=== PATIENT | female | born 1930 | race Caucasian/White ===

== ENCOUNTER 2018-03-14 16:51 | Inpatient (IN) | payer MEDICARE ==
[~2018-03-14] VITALS: Ht 167.6 cm; Wt 64.0 kg
--- NOTE | ~2018-03-14 | EKG ---
[place], [place] ELECTROCARDIOGRAM REPORT NAME: RENE JARA UNIT #: [id number] ROOM: 509 DOCTOR: GEGE DRAFT REPORT BIRTHDATE: [birth year] [facility] Test Date: 2018-03-14 Test Time: 18:38:41 Pat Name: RENE JARA Department: Room: 509 Gender: F Inspector Hairspring: Viji Gleason : 1930 Requested By: MARÍA KILPATRICK Order Number: [id number] Reading MD: Amado Newton MD Measurements Intervals [place] Rate: 112 P: 14 [place]: 157 QRS: -73 QRSD: 74 T: 44 QT: 336 QTc: 459 Interpretive Statements Sinus tachycardia Abnormal R-wave progression, early transition Artifact in lead(s) I,aVL,V1,V2,V3,V4,V5,V6 Marked baseline artifact makes interpretation difficult Electronically Signed On 03-14-2018 16:36:46 PST by Amado Newton MD CM:EKGRPT:ELECTROCARDIOGRAM REPORT [id number] MARÍA PENA DRAFT REPORT MARÍA KILPATRICK DO
[~2018-03-14 16:51] MED LIST: AMLODIPINE BESYL5 MG PO; ASPIR LOW81 MG PO; ATIVAN0.5 MG PO; ATIVAN1 MG PO; BACLOFEN5 MG PO; CELEXA20 MG PO; DEPAKOTE125 MG PO; DEPAKOTE250 MG PO; DULCOLAX10 M1 R; LASIX20 MG PO; MUSCLE RUB CREA35 GM T; NP THYROID 120120 MG PO; OMEPRAZOLE D/R20 MG PO; RIVASTIGMINE T1.5 M1 PO; Sinemet Cr 25-11 TAB PO; ULTRAM50 MG PO
[2018-03-14 16:56] VITALS: BP 105/54
[2018-03-14 17:16] LABS: BASO % 0.5 % (0.0-1.0); EOS % 0.1 % (1.0-4.0); HEMATOCRIT 42.9 % (37.0-47.0); HEMOGLOBIN 13.8 g/dl (12.0-16.0); LYMPH % 11.5 % (27.0-41.0); MEAN CELL VOLUME 95.5 fl (81.0-99.0); MEAN CORPUSCULAR HGB 30.7 pg (27.0-31.0); MEAN CORPUSCULAR HGB CONC 32.2 g/dl (33.0-37.0); MEAN PLATELET VOLUME 10.6 fl (9.6-12.3); MONO # 0.6 10*3/uL (0.1-1.0); MONO % 7.1 % (3.0-9.0); NEUT # 6.7 10*3/uL (2.3-7.9); NEUT % 80.6 % (47.0-73.0); PLATELET COUNT AUTOMATED 209 10*3/uL (130-400); RED BLOOD COUNT 4.49 10*6/uL (4.10-5.10); RED CELL DISTRI WIDTH 14.2 % (0-14.5); WHITE BLOOD COUNT 8.4 10*3/uL (4.8-10.8)
[2018-03-14 17:25] LABS: ACT PARTIAL THROMBO TIME 22.1 SECONDS (20.8-31.5)
[2018-03-14 17:32] LABS: ALBUMIN 3.7 gm/dl (3.1-4.5); CREATININE 1.35 mg/dL (0.55-1.02); POTASSIUM 4.7 mmol/L (3.5-5.1); TOTAL PROTEIN 7.2 gm/dL (6.4-8.2)
[2018-03-14 17:33] LABS: BILIRUBIN NEGATIVE (NEGATIVE); BLOOD 1+ (NEGATIVE); CLARITY SL CLOUDY (CLEAR); COLOR YELLOW (YELLOW); GLUCOSE NEGATIVE (NEGATIVE); KETONE TRACE (NEGATIVE); LEUKO ESTERASE NEGATIVE (NEGATIVE); NITRITE NEGATIVE (NEGATIVE); PH 5.5 (5.0-9.0); SPECIFIC GRAVITY 1.025 (1.005-1.030); UROBILINOGEN 0.2 E.U./dl (0.2-1.0)
[2018-03-14 17:34] LABS: TROPONIN I 0.558 ng/ml (<0.045)
--- NOTE | 2018-03-14 17:36 | NUR ---
DR KILPATRICK AWARE OF CRITICAL TROPONIN LEVEL OF 0.558
[2018-03-14 17:53] LABS: BACTERIA 1+; MUCOUS 1+
--- NOTE | 2018-03-14 19:31 | NUR ---
PATIENT YELLING OUT IN ROOM. NO S/S OF DISTRESS NOTED. SIDERAILS UP X2, CALL LIGHT WITHIN REACH. VISUALLY SEEN FROM NURSES STATION. WILL CONTINUE TO MONITOR.
[2018-03-14 20:00] VITALS: BP 105/54; BP 128/58
--- NOTE | 2018-03-14 20:00 | NUR ---
A 88, admitted to 5E, under the services of CAM Thomson DO with a diagnosis of ELEVATED TROPONINS AND ALTERED MENTAL STATUS.. Chief complaint is ALTERED MENTAL STATUS]. Patient arrived via bed from ER. Monitor applied. Initial assessment completed. Vital signs taken and recorded. CAM THOMSON DO notified of admission to the unit. Orders received. See assessment for past medical history, medications and allergies. Patient and/or family oriented to unit. [facility] visitation policy reviewed. Clothing/patient valuable form completed. TERRANCE NICOLE
--- NOTE | 2018-03-14 20:23 | NUR ---
NOTIFIED DR DANIEL THAT WE ARE UNABLE TO RECONCILE [facility] MEDS DUE TO [facility] DID NOT SEND PT MED LIST.
--- NOTE | 2018-03-14 20:26 | NUR ---
DR. DANIEL INSTRUCTED ME TO NOT PUT PATIENT ON A HEART MONITOR.
--- NOTE | 2018-03-14 20:45 | NUR ---
NOTIFIED DR WHEAT OF CRITICAL TROPONIN 0.518. NO NEW ORDERS.
--- NOTE | 2018-03-14 23:33 | NUR ---
DR. WHEAT WAS NOTIFIED OF CRITICAL HIGH TROP. LEVEL.
[2018-03-15] VITALS: BP 102/50
--- NOTE | 2018-03-15 03:19 | NUR ---
PATIENTS APTT CAME BACK 129.5. HEPARIN WAS PAUSED FOR 1 HOUR AND DECREASED BY 3 PER POLICY. WILL MONITOR.
--- NOTE | 2018-03-15 03:22 | NUR ---
DR. WHEAT WAS NOTIFIED FOR THE CRITICAL LAB OF APTT 129.5
[2018-03-15 05:59] LABS: CREATININE 1.18 mg/dL (0.55-1.02)
[2018-03-15 06:01] LABS: TROPONIN I 0.5 ng/ml (<0.045)
[2018-03-15 06:04] LABS: THYROID STIM HORMONE (HS) 4.11 uIU/ml (0.358-4.75)
--- NOTE | 2018-03-15 06:05 | NUR ---
CALLED CRITICAL TROPONIN 0.[address] WHEAT NO NEW ORDERS RECEIVED.
[2018-03-15 06:20] LABS: BASO % 0.5 % (0.0-1.0); EOS # 0.1 10*3/uL (0.0-0.4); EOS % 0.9 % (1.0-4.0); LYMPH % 25.6 % (27.0-41.0); MEAN CELL VOLUME 95.5 fl (81.0-99.0); MEAN CORPUSCULAR HGB 31.1 pg (27.0-31.0); MEAN CORPUSCULAR HGB CONC 32.6 g/dl (33.0-37.0); MEAN PLATELET VOLUME 11.8 fl (9.6-12.3); MONO # 1.1 10*3/uL (0.1-1.0); MONO % 14.5 % (3.0-9.0); NEUT # 4.5 10*3/uL (2.3-7.9); NEUT % 58.4 % (47.0-73.0); PLATELET COUNT AUTOMATED 174 10*3/uL (130-400); RED BLOOD COUNT 3.76 10*6/uL (4.10-5.10); RED CELL DISTRI WIDTH 14.4 % (0-14.5); WHITE BLOOD COUNT 7.7 10*3/uL (4.8-10.8)
[2018-03-15 06:21] LABS: HEMATOCRIT 35.9 % (37.0-47.0); HEMOGLOBIN 11.7 g/dl (12.0-16.0)
[2018-03-15 06:26] LABS: INTERNATIONAL NORM RATIO 1.1 (2.0-3.5)
[2018-03-15 08:00] VITALS: BP 100/60
--- NOTE | 2018-03-15 09:04 | NUR ---
SPOKE TO BAILEY AT [facility] AND REQUESTED MEDICATION LIST. WAITING ON FAX
[2018-03-15] MEDS ORDERED: ACETAMINOPHEN325 M2 PO (09:20)
[2018-03-15] MEDS ORDERED: DULCOLAX10 M1 R (09:26)
[2018-03-15] MEDS ORDERED: RIVASTIGMINE TAR3 M1 PO (09:29)
--- NOTE | 2018-03-15 09:45 | NUR ---
PTS HOME MEDICATIONS VERIFIED. DR MAHONEY NOTIFIED
[2018-03-15] MEDS ORDERED: DEPAKOTE ER250 MG PO (11:02)
--- NOTE | 2018-03-15 11:14 | NUR ---
SPOKE TO KORI CEJA REGARDING U CONSULT AND CONTINUATION OF HOME PSYCH MEDS. ORDERS RECEIVED
--- NOTE | 2018-03-15 11:20 | NUR ---
DR VORA IN TO SEE PT REGARDING CONSULT. HEPARIN DRIP DISCONTINUED. ORDER FOR LOVENOX RECEIVED
--- NOTE | 2018-03-15 11:24 | NUR ---
CALLED ANSWERING SERVICE REGARDING NEW PT CONSULT FOR DR COLEY. WAITING DATAWAREHOUSE DEVELOPER BACK
--- NOTE | 2018-03-15 11:40 | NUR ---
DR PROCTOR CALLED FROM [facility]. CRITICAL US FINDINGS. PARTIALLY OCCLUSIVE DVT LEFT FEMORAL VEIN. DR VORA AND DR MAHONEY NOTIFIED
[2018-03-15 12:00] VITALS: BP 96/62
[2018-03-15 16:00] VITALS: BP 94/60
[2018-03-15] MEDS ORDERED: METOPROLOL SUCC25 M2 PO (17:12)
[2018-03-15] MEDS ORDERED: ELIQUIS5 M1 PO (17:15)
--- NOTE | 2018-03-15 18:24 | NUR ---
PT DISCHARGED TO [facility]. PT LEFT FLOOR VIA WHEELCHAIR IN THE CARE OF SECURITY, RN AND AID FROM [facility]. PACKET SENT WITH RN. PT REMAINS CONFUSED
[2018-03-16] MEDS ORDERED: NORVASC5 MG PO (10:42)
[2018-03-16] MEDS ORDERED: LASIX20 MG PO (10:43)
== END 2018-03-15 18:24 | disposition home health service (06) | DRG 70 ==
LOC: ED 16:51 → EDHOLD 18:31 → 5E 18:31 → EDHOLD 18:46 → 5E 18:52
PROVIDERS: Emergency Medicine; Student in an Organized Health Care Education/Training Program; ADMIT Internal Medicine
DX: G93.41 Metabolic encephalopathy (principal); N17.0 Acute kidney failure with tubular necrosis; I82.402 Acute embolism and thrombosis of unspecified deep veins of left lower extremity; Z96.659 Presence of unspecified artificial knee joint; K21.9 Gastro-esophageal reflux disease without esophagitis; R73.9 Hyperglycemia, unspecified; D64.9 Anemia, unspecified; E87.8 Other disorders of electrolyte and fluid balance, not elsewhere classified; F03.90 Unspecified dementia, unspecified severity, without behavioral disturbance, psychotic disturbance, mood disturbance, and anxiety; E83.41 Hypermagnesemia; R00.0 Tachycardia, unspecified; I08.0 Rheumatic disorders of both mitral and aortic valves; I10 Essential (primary) hypertension; E03.9 Hypothyroidism, unspecified; F32.9 Major depressive disorder, single episode, unspecified; R74.8 Abnormal levels of other serum enzymes; M81.0 Age-related osteoporosis without current pathological fracture; G20 Parkinson's disease; M48.02 Spinal stenosis, cervical region; Z79.82 Long term (current) use of aspirin; Z79.899 Other long term (current) drug therapy

== ENCOUNTER 2018-03-15 15:18 | Inpatient (IN) | payer MEDICARE ==
[~2018-03-15] VITALS: Ht 160 cm; Wt 63.5 kg
--- NOTE | ~2018-03-15 | PR ---
[place], [place] PROGRESS NOTE NAME: RENE JARA UNIT #: [id number] ROOM: 314 DOCTOR: MARTÍN BELLA MD BIRTHDATE: [birth year] DOS: 03/18/2018 CHIEF COMPLAINT: "Oh, my throat hurts and I feel nauseated." SUMMARY OF THE VISIT: The patient was interviewed as she was resting quietly in bed. She was awake as I approached. She engaged readily in conversation and was mainly somatically preoccupied once again with a sore throat, this time also complaining of feeling queasy and nauseated in her belly. Nurses report that overall she has been much more compliant than upon admission. There has been no yelling out at night and she has been for the most part sleeping through the night. She has been compliant with her medicine. She is not exhibiting any side effects from the medicines themselves. MENTAL STATUS: She is alert and oriented with significant time gaps. Mood still does seem to be depressed with anxious overtones. There is no hypomania or oscar. There is no gross psychosis. Short term memory continues to be problematic. PLAN: I will discontinue her Cymbalta in lieu of Remeron orally disintegrating tablet 15 mg at bedtime; not only will further improve sleep, it will also improve her appetite. It has an antinausea and vomiting property, which should also make her physically feel more comfortable. I will defer treatment of her sore throat to the hospitalist, continue to engage in individual and wills milieu activity, returning then to the least restrictive environment when psychiatrically stable. MARTÍN BELLA MD CM:PNTRANS [phone] MARTÍN BELLA MD 03/19/18 0336 interface
--- NOTE | ~2018-03-15 | PR ---
[place], [place] PROGRESS NOTE NAME: RENE JARA UNIT #: [id number] ROOM: 314 DOCTOR: MARTÍN BELLA MD BIRTHDATE: [birth year] DOS: 03/19/2018 CHIEF COMPLAINT: "That nausea is better, but I woke up in the middle of the night." SUMMARY OF THE VISIT: The patient was interviewed as she was sitting in the dining area. She was much more pleasant and cooperative and conversant. She reports that she is feeling better and that the nausea has gone. She did report that she did not sleep, but she rates this off to drinking caffeinated beverages throughout the day. She voiced no other complaints. She remains pleasantly confused. MENTAL STATUS: She is alert and oriented to person, place, not time. Mood does seem to be trending towards euthymia. Affect is more appropriate. There is no oscar or hypomania. There is no gross psychosis. Short term memory remains problematic. PLAN: I will increase her Remeron from 15 to 22.5 mg at bedtime. Continue to engage in individual and wills milieu activity, returning then to the least restrictive environment when psychiatrically stable. MARTÍN BELLA MD CM:PNTRANS [phone] MARTÍN BELLA MD 03/20/18 0325 interface
--- NOTE | ~2018-03-15 | PR ---
[place], [place] PROGRESS NOTE NAME: RENE JARA UNIT #: [id number] ROOM: 314 DOCTOR: MARTÍN BELLA MD BIRTHDATE: [birth year] DOS: 03/17/2018 CHIEF COMPLAINT: "I am here because of a sore throat." SUMMARY OF THE VISIT: The patient was interviewed as she was sitting, eating her breakfast. She engaged readily in superficial conversation. For the most part she was pleasant and cooperative. She was not agitated or aggressive and had most of her breakfast eaten at the time. MENTAL STATUS: She is alert and oriented to person, possibly place, not to time. Mood does seem to be more euthymic. Affect is more appropriate. There was no oscar or hypomania. There were no gross psychotic symptoms. Short term memory is very problematic. PLAN: I will maximize out the dose of the Namenda, bringing it up to 10 mg b.i.d. as it augments the effectiveness of the Exelon. We will engage in individual and wills milieu activity, returning to the least restrictive environment when psychiatrically stable. MARTÍN BELLA MD CM:PNTRANS [id number] MARTÍN BELLA MD 03/18/18 0417 interface
--- NOTE | ~2018-03-15 | DS ---
[place], [place] DISCHARGE SUMMARY [id number] #: [id number] ROOM: 314 DOCTOR: MARTÍN BELLA MD BIRTHDATE: [birth year] DOS: 03/21/2018 CHIEF COMPLAINT: "I am doing terrible." HISTORY OF PRESENT ILLNESS: This is an 88-year-old white female, a resident of [facility] in [place], [place], with a history of major depression, recurrent and Parkinson's disease. She presents to the Emergency Room at [facility] for psychiatric evaluation and possible U stay. The patient was initially admitted to the medical floor where she was found to have a DVT and placed on anticoagulation therapy. The patient had been increasingly confused over the last several days and had been yelling out nonstop. Attempts to redirect her were only met with her becoming increasingly more physically aggressive and agitated. She was disruptive to the entire wills milieu both at the long-term care facility and while on the medical floor. Given the severity of her behavioral disturbance, it was felt that an inpatient stabilization would be warranted and she was admitted to the U to further rule out organic factors, to stabilize on medication, to engage in individual and wills milieu activity. SUMMARY OF HOSPITAL COURSE: The patient was admitted to the unit where she was found to have a low vitamin D level of 28.5, so she was given 50,000 International Units of vitamin D weekly. The patient had been taking Exelon 4.5 mg twice daily. This was increased to its maximum dose of 6 mg b.i.d. The patient was started on Namenda to augment the effectiveness of the Exelon and the dose was started at 5 mg a day and rapidly increased to its maximum dose of 10 mg twice daily. The patient was on Celexa while at [facility]. This was discontinued and she was started on Remeron. This had a dramatic improvement on her mood and affect. She did sleep better. She started to eat more. The dose was increased to 15, to 30, which seemed to be too much as she did not sleep as well on the 30, so the dose was lowered back to 22.5 with excellent results. With this combination of medication, the patient did sleep well, eat well, engaged in ADLs and she no longer was yelling out. She redirected more readily. She tolerated the current medication regimen well without sedation, somnolence or other side effects. She returned then to [facility] at that time. MENTAL STATUS AT DISCHARGE: She is alert and oriented to person, place, but not time. Mood was strongly trending towards euthymia. Affect was more appropriate. There was no oscar, hypomania or gross psychosis. Short term memory continued to be problematic. DIAGNOSES: Intermittent explosive disorder and major depression, recurrent with Alzheimer's dementia. DISPOSITION: All of her prescriptions have been E-scribed to [facility]. At the time of discharge, there was no acute medical problem. Psychiatrically, she was stable. I will be the treating psychiatrist upon her readmission to [facility]. [place], [place] DISCHARGE SUMMARY NAME: RENE JARA UNIT #: [id number] ROOM: [facility] DOCTOR: MARTÍN BELLA MD BIRTHDATE: [birth year] MARTÍN BELLA MD CM:ABDIRAHMAN [id number] MARTÍN BELLA MD 03/21/18 1240 interface
--- NOTE | ~2018-03-15 | PR ---
[place], [place] PROGRESS NOTE [id number] UN[facility] #: [id number] ROOM: 314 DOCTOR: MARTÍN BELLA MD BIRTHDATE: [birth year] DOS: 03/20/2018 CHIEF COMPLAINT: "Oh, I slept better and the nausea is better, thank you for asking." SUMMARY OF THE VISIT: The patient was interviewed as she was sitting in a Zulma chair in the dining area. She had already eaten her breakfast. She was bright and pleasant upon approach and very engaging. She very quickly told me that the nausea in her belly was no longer bothering her. She ate well and slept well. She voiced no other complaints. There was no agitation or aggression. There was no mood lability. There was no sedation, somnolence, extrapyramidal symptoms, or tardive dyskinesia. MENTAL STATUS: She is alert and oriented to person, place, but not time. Mood does seem to be strongly trending towards euthymia. Affect is much more appropriate. There is no oscar, hypomania, or gross psychosis. Short term memory continues to be problematic. PLAN: I will maintain her current psychotropic regimen, engage in individual and wills milieu activity, returning then to the least restrictive environment when psychiatrically stable. MARTÍN BELLA MD CM:PNTRANS [phone] MARTÍN BELLA MD 03/20/18 2217 interface
[~2018-03-15 15:18] MED LIST changes: +ACETAMINOPHEN325 M2 PO; +DEPAKOTE ER250 MG PO; +RIVASTIGMINE TAR3 M1 PO
[2018-03-15] MEDS ORDERED: METOPROLOL SUCC25 M2 PO (17:12)
[2018-03-15] MEDS ORDERED: ELIQUIS5 M1 PO (17:15)
--- NOTE | 2018-03-15 18:12 | NUR ---
NURSING NEW VEHICLE SALES CONSULTANT NOTIFIED OF PATIENT BEING ADMITTED TO UNIT.
--- NOTE | 2018-03-15 18:20 | NUR ---
RENE JARA a 88 year old F admitted via wheel chair from the ADMITTING as a voluntary admission BY JOSE M. Arrived on unit at 1820 . ALLERGIES: SYNTHROID, BIOPHOSPHONATES . Vital signs are: 98.3, 76, 18, 128/69, 97%RA. The client signed the following forms with stated understanding: Authorization For The Release of Medical Information, Clothing List, Consent to Voluntary Admission and Hospitalization, Consent and Release Forms/Receipt of Rights, Acknowledgement of Advance Directive Information, Behavioral Health Consent Form, and Informed Consent of Medications. Admitted under the services of Dr. JENA ALVAREZMARTÍN. A search was conducted and hazardous articles were removed. Client was oriented to the unit. JEANCARLOS KIRBY
--- NOTE | 2018-03-15 18:40 | NUR ---
DR. NELSON NOTIFIED OF NEW ADMISSION, MEDICAITONS AND DIAGNOSIS LIST UPDATED FOR REVIEW. PATIENT WILL BE UNDER THE CARE OF DR. SEO.
[2018-03-15 18:53] VITALS: BP 128/69
[2018-03-15 19:26] VITALS: BP 128/69
--- NOTE | 2018-03-15 19:42 | NUR ---
REFUSED TO PARTICIPATE IN SUICIDAL QUESTIONS IN THE INTERVENTIONS. SCREAMING OUT AT STAFF AND REFUSING TO ANSWER. WILL ATTEMPT AT ANOTHER TIME.
--- NOTE | 2018-03-15 19:54 | NUR ---
DR CERVANTES ON UNIT TO SEE PT FOR MEDICAL CONSULT
[2018-03-15 19:55] VITALS: BP 128/69
--- NOTE | 2018-03-15 21:43 | NUR ---
P-INCREASED AGITATION, AGGRESSIVE BEHAVIOR I-REDIRECT, REORIENT, PROVIDE REASSURANCE OF SAFETY, ADMINISTER HS MEDICATION PRN ATIVAN 1 MG IM @ 2100 & MONITOR SLEEP R-ALERT TO PERSON ONLY, UNRECEPTIVE TO REDIRECTION OR REORIENTATION, YELLING OUT WITH LOUD & REPETITIVE SPEECH, ATTEMPTED TO GIVE HS SNACK & MEDS IN PUDDING & PT SPIT & REFUSED & SWUNG OUT AT STAFF. INCREASED AGITATION, PRN ATIVAN GIVEN & HAS BEEN EFFECTIVE. PT RESTING IN AGUSTIN CHAIR NEAR NURSES STATION FOR SAFETY P-CONTINUE TO MONITOR FOR AGGRESSIVE BEHAVIOR & AGITATION, MONITOR SLEEP
--- NOTE | 2018-03-15 23:00 | NUR ---
24 HR chart check completed.
--- NOTE | 2018-03-16 04:43 | NUR ---
ATIVAN WAS ONLY MINIMALLY EFFECTIVE. PT HAS REMAINED AWAKE THROUGHOUT MOST OF THE SHIFT NOTED TO SLEEP FOR BRIEF INTERVALS OF APPROXIMATELY 10 MINUTES AT A TIME & THEN BE AWAKE FOR APPROX HALF AN HOUR & YELL OUT & CRY
[2018-03-16 07:09] LABS: BASO % 0.3 % (0.0-1.0); EOS % 0.1 % (1.0-4.0); HEMATOCRIT 40.1 % (37.0-47.0); HEMOGLOBIN 13.5 g/dl (12.0-16.0); LYMPH # 1.2 10*3/uL (1.3-4.4); LYMPH % 10.8 % (27.0-41.0); MEAN CELL VOLUME 93.3 fl (81.0-99.0); MEAN CORPUSCULAR HGB 31.4 pg (27.0-31.0); MEAN CORPUSCULAR HGB CONC 33.7 g/dl (33.0-37.0); MEAN PLATELET VOLUME 10.6 fl (9.6-12.3); MONO # 0.9 10*3/uL (0.1-1.0); MONO % 8.4 % (3.0-9.0); NEUT # 8.8 10*3/uL (2.3-7.9); NEUT % 80.1 % (47.0-73.0); PLATELET COUNT AUTOMATED 201 10*3/uL (130-400); RED CELL DISTRI WIDTH 14.1 % (0-14.5)
[2018-03-16 07:29] LABS: CHLORIDE 103 mmol/L (98-107); SODIUM 137 mmol/L (136-145)
[2018-03-16 07:47] LABS: ALBUMIN 3.1 gm/dl (3.1-4.5); ALKALINE PHOSPHATASE 66 U/L (45-117); CHOLESTEROL 144 mg/dL (<200); CREATININE 0.87 mg/dL (0.55-1.02); HDL CHOLESTEROL 68 mg/dl (40-60); LDL CHOLESTEROL 62 mg/dL (9-159); SGOT/AST 48 IU/L (3-35); SGPT/ALT 31 U/L (12-78); TOTAL PROTEIN 6.7 gm/dL (6.4-8.2); TRIGLYCERIDES 71 mg/dl (<150); VLDL CHOLESTEROL 14 mg/dL (6-40)
[2018-03-16 07:48] LABS: BUN 23 mg/dl (7-24)
[2018-03-16 08:16] VITALS: BP 135/69
[2018-03-16 08:28] LABS: VITAMIN D, 25-HYDROXY 28.5 ng/mL (30-100)
--- NOTE | 2018-03-16 09:50 | NUR ---
DR. SEO ON UNIT TO ASSESS PATIENT.
--- NOTE | 2018-03-16 10:10 | NUR ---
DR. SEO NOTIFIED OF PATIENT REFUSING MEDICATIONS X 3 ATTEMPT. MEDICATION CLARIFICATIONS NOTED PER DR. SEO.
[2018-03-16] MEDS ORDERED: NORVASC5 MG PO (10:42)
[2018-03-16] MEDS ORDERED: LASIX20 MG PO (10:43)
--- NOTE | 2018-03-16 16:36 | NUR ---
PM GROUP/EXERCISES/BINGO/ART PT UNABLE TO ATTEND DUE TO BEING ORIENTED TO UNIT. PT WILL BE ENCOURAGED TO ATTEND AND PARTICIPATE IN FUTURE GROUP SESSIONS.
--- NOTE | 2018-03-16 16:37 | NUR ---
PERSONAL DAILY GOAL PT UNABLE DUE TO ORIENTING TO UNIT
--- NOTE | 2018-03-16 16:39 | NUR ---
PATIENT COMPLAINED OF LEFT HIP PAIN, STATING IT HURTS REAL BAD. PRN TYLENOL 650MG GIVEN PO AT THIS TIME.
--- NOTE | 2018-03-16 18:16 | NUR ---
Psychosocial assessment completed with collateral information from Eddie. left for Blaire. Collaborated with staff--SMALL PRODUCTS II ASSEMBLER and RN.
--- NOTE | 2018-03-16 19:24 | NUR ---
PATIENT IS ALERT TO SELF WITH CONFUSION. MOOD IS LABILE AT TIMES. PATIENT WOULD YELL OUT AND CHANT. YELLED AT STAFF TO LEAVE ROOM. NO VOICE STATEMENT OF HI/SI. PATIENT COMPLAINED OF PAIN AT 1634 REQUESTING PAIN MEDICATION, TYLENOL WAS EFFECTIVE. RESPONDING TO INTERNAL STIMULI, TALKING TO UNSEEN OTHERS. 2 PERSON ASSIST WITH ACTIVITIES OF DAILY LIVING, INCONTINENT OF BOWEL AND BLADDER. SET UP FOR MEALS WITH ENCOURAGEMENT TO EAT AND DRINK. PATIENT REFUSED MEDICATION THIS MORNING WITH SEVERAL ATTEMPTS TO TAKE MEDS. DAUGHTER CAME IN TO VISIT WITH AFTERNOON. PATEINT TOOK MEDICAITONS AT THIS TIME AND ATE JELLO AT LUNCH TIME. AFTER SPENDING TIME WITH DAUGHTER, PATIENT IS COMPLIANT WITH MEDICATION, ATE 50% OF DINNER AND 360CC FLUIDS. YELLING OUTBURST ALSO LESSENED. PATIENT IN DINING ROOM WITH OTHER PATIENTS IN RECLINE WITH EYES CLOSED.
[2018-03-16 19:46] VITALS: BP 124/61
--- NOTE | 2018-03-16 21:57 | NUR ---
24 HR chart check completed.
--- NOTE | 2018-03-16 22:31 | NUR ---
P-AGITATION, NON COMPLIANCE WITH MEDS, CONFUSION I-ASSESS ORIENTATION & REORIENT, PROVIDE REDIRECTION, ADMINISTER MEDICATIONS & MONITOR SLEEP R-ALERT TO PERSON ONLY, UNRECEPTIVE TO REORIENTATION, PT IS IRRITABLE, NO AGITATION, FOLLOWS SIMPLE COMMANDS, PT C/O PAIN TO HER LERFT HIP & LEG & WANTED A PAIN PILL. GIVEN ROUTINE MEDICATIONS WHICH INCLUDED PAIN MEDICATION, PO COMPLIANT TAKING MEDS CRUSHED & MIXED IN APPLESAUCE P-CONTINUE TO MONITOR FOR AGITATION & TRIGGERS, ENCOURAGE COMPLIANCE WITH MEDICATIONS.
--- NOTE | 2018-03-17 05:49 | NUR ---
PT HAS SLEPT QUIETLY THROUGHOUT THE SHIFT PAST 2200
[2018-03-17 08:08] VITALS: BP 132/65
--- NOTE | 2018-03-17 08:15 | NUR ---
Treatment Plan meeting with Dr. Hung, RN, AT, SW and Director Telemetry. Plan for discharge at the end of the week, beginning of next week. Will contact [facility] where patient currently resides.
--- NOTE | 2018-03-17 10:43 | NUR ---
ASSESSMENT AND 1:1 COMPLETED PT ASSESSMENT AND SPENT SOME 1:1 TIME. PT STATES WHEN ASKED WHY SHE IS HERE?, "I GUESS BECAUSE I YELL OUT AT NIGHT WHEN EVERYONE IS TRYING TO SLEEP? BUT, I KEEP HAVING THESE NIGHTMARES, I SOMETIMES DON'T UNDERSTAND, LIKE I GET CONFUSED OR FORGET THE WORDS I WANT TO SAY. SOMETIMES WHEN I WAS WALKING, I WOULD ALL OF SUDDEN STOP AND NOT KNOW WHY I CAN'T KEEP MOVING? THEY TELL ME IT HAS TO DO WITH MY PARKINSON'S DISEASE" PT MAIN CONCERNS ARE, "I NEED TO KEEP MOVING, PHYSICAL THERAPY. I WISH I COULD READ AND DO WORDSEARCHS, THE THINGS I USED TO DO, BUT NOW I JUST DON'T HAVE ANY INTEREST. GOOD THING I DON'T HAVE TO KEEP A HOUSE!"
--- NOTE | 2018-03-17 10:47 | NUR ---
PERSONAL DAILY GOAL ISSUES OF AGING AND DISEASE PT STATES, "I AM 88 YEARS OLD AND I CAN'T DO THE THINGS THAT I USED TO, I WOULD LIKE TO, BUT SOMETIMES THINK, WHY AM I STILL HERE?"
--- NOTE | 2018-03-17 12:07 | NUR ---
Spoke with Matt at [facility]. Pt. is [facility] Short Order care at Facility Private Pay bed hold and can return to facility at discharge.
--- NOTE | 2018-03-17 12:10 | NUR ---
AM GROUP/EXERCISES/GAMES PT ATTENDED SECOND HALF OF GROUP DUE TO MEETING WITH SECOND VEGETABLE LOADER MACHINE OPERATOR TO COMPLETE ASSESSMENT. PT PARTICIPATED IN SECOND PART OF GROUP UNTIL ASKING "DID MY NURSE GIVE ME MY MEDICINE BECAUSE I AM FEELING WOOZY" THIS STAFF ASKED NURSE ABOUT PT MEDS AND PT NURSE ADDRESSED SITUATION. PT PARTICIPATED THE REST OF GROUP TO BEST OF ABILITY. PT WILL CONTINUE TO BE ENCOURAGED TO ATTEND AND PARTICIPATE IN FUTURE GROUP SESSIONS.
--- NOTE | 2018-03-17 12:16 | NUR ---
Faxed Updates to [facility] Attn: Matt.
--- NOTE | 2018-03-17 14:32 | NUR ---
PATIENT IS ALERT TO PERSON, PLACE, YEAR AND SITUATION; ABLE TO VOICE NEEDS. MOOD IS STABLE, NO OUTBURST. DENIES ANY HALLUCINATIONS, DELUSIONS, HI/SI OR PAIN. 2 PERSON ASSIST WITH ACTIVITIES OF DAILY LIVING, INCONTINENT OF BOWEL AND BLADDER. SET UP FOR MEALS, INTAKES IMPROVING, 100% FOR BREAKFAST, DRINKING FLUIDS NOW. POA IN TO VISIT, ALL QUESTION ANSWERED. PATIENT IS COMPLIANT WITH MEDICATIONS WITH EDUCATION PROVIDED. INTERACTIVE WITH STAFF AND OTHER PATIENTS, PARTICIPATES IN GROUP SESSIONS. Q 15 MINUTE SAFETY CHECKS MAINTAINED. CONTINUE TO MONITOR MEAL INTAKES, MEDICATION COMPLIANCE AND AGGRESSION/OUTBURST. PROVIDE ONE ON ONE AND REDIRECTION WITH ENCOURAGEMENT TO TAKE MEDICATIONS AND EAT MEALS.
--- NOTE | 2018-03-17 15:49 | NUR ---
PM GROUP/ART/MUSIC PT ATTENDED AND PARTICIPATED DURING GROUP. PT PLEASANT AND ON TASK UNTIL STATING "I'M TIRED, CAN YOU LAY MY CHAIR BACK?" THIS STAFF RECLINED CHAIR SINCE THERE WAS ONLY 15 MINUTES LEFT IN GROUP. PT DID NOT BECOME AGGRESSIVE OR YELL OUT AT THIS TIME. PT WILL CONTINUE TO ATTEND GROUP AND PARTICIPATE TO BEST OF ABILITY.
[2018-03-17 20:46] VITALS: BP 133/69
--- NOTE | 2018-03-18 02:39 | NUR ---
P-MEDICATION COMPLIANCE, CONFUSION I- ASSESS ORIENTATION, REORIENT AND REDIRECT NEEDED. ENOURAGE MEDICATION COMPLIANCE AND EDUCATE. MONITOR SLEEP. R- PATIENT ALERT AND ORIENTED X4, PARTICIPATED IN MEDICATION EDUCATION WITH POSITIVE FEEDBACK. MEDICATION COMPLIANT WITHOUT DIFFICULTY. COOPERATIVE WITH HANDS ON CARE, NO AGITATION NOTED. P- CONTINUE TO ENCOURAGE MEDICATION COMPLIANCE, MONITOR FOR CHANGES IN MOOD AND BEHAVIOR. REORIENT AND REDIRECT NEEDED. MAINTAIN Q 15 MIN SAFETY CHECKS.
[2018-03-18 04:33] VITALS: BP 138/66
--- NOTE | 2018-03-18 04:33 | NUR ---
PATIENT C/O "NOT FEELING WELL". WHEN ASKED TO ELABORATE, PT STATED "I JUST HAVE A SORE THROAT". NO COUGH NOTED. PATIENT VITALS TAKEN, T-99.6, P-63, R-16, BP-138/66, SPO2 100 RA, BSG 93. NO OTHER PHYSICAL COMPLAINTS VOICED. PATIENT PROVIDED WITH TYLENOL 650MG PO PRN AT 0416 FOR SLIGHTLY ELEVATED TEMP AND THROAT PAIN. PATIENT RESTING QUIETLY AT THIS TIME, NO SIGNS OR SYMPTOMS OF DISTRESS NOTED.
--- NOTE | 2018-03-18 05:46 | NUR ---
24 HOUR CHART CHECK COMPLETED.
--- NOTE | 2018-03-18 05:51 | NUR ---
PATIENT TEMP RECHECKED AT THIS TIME, 98.5 ORAL. NO COMPLAINTS OF PAIN NOTED. PRN TYLENOL GIVEN AT 0416 EFFECTIVE.
--- NOTE | 2018-03-18 06:18 | NUR ---
PATIENT OBSERVED ON Q 15 MIN CHECKS TO HAVE SLEPT APPROX 6 HOURS WITH X2 AWAKENINGS DURING STAFF CHECKS. NO SIGNS OR SYMPTOMS OF DISTRESS NOTED.
[2018-03-18 08:02] VITALS: BP 149/62
--- NOTE | 2018-03-18 08:15 | NUR ---
Treatment Plan meeting with Dr. Hung, RN, AT, SW and Parachute/Combatant Diver Officer. Plan for discharge at the end of the week, beginning of next week.
--- NOTE | 2018-03-18 08:45 | NUR ---
Occupational Therapy evaluation completed on 3 with full eval to follow. Precautions include fall risk, impaired balance and safety, tearfullness, nausea preventing patient from standing. Patient is moderate complexity level [id number] via chart review, testing and evaluation. Recommend OT per pOC and return to shelter. Thank you for this referral. Brie Dominguez OTR/l
--- NOTE | 2018-03-18 10:39 | NUR ---
PHYSICAL THERAPY PAtient evaluated on three this date, full evaluation to follow. Continue with PT as per plan of care with fall, unit three, SIGNIFICANT NAUSIA and alarms prn percautions. Patient is moderate complexity via chart review, tests and evaluation: 34626. Thank you for this referral. Roselia Amaor,PT
--- NOTE | 2018-03-18 11:45 | NUR ---
Garcia Snow from [facility] here to visit. Clinical Updates provided. Pt. to return to [facility] at discharge.
--- NOTE | 2018-03-18 11:53 | NUR ---
PERSONAL DAILY GOAL ISSUES OF AGING PT STATED, "I'M ALMOST 89 YEARS OLD, SOMETIMES I WONDER WHAT THERE IS FOR ME LEFT TO DO?"
--- NOTE | 2018-03-18 11:54 | NUR ---
AM GROUP/EXERCISE/SELF-WORTH PT WAS BROUGHT INTO GROUP WITH ONLY A FEW MINUTES LEFT. PT DID PARTICIPATE IN THE SELF-WORTH DISCUSSION. PT WILL CONTINUE TO ATTEND AND PARTICIPATE IN GROUP THERAPY. PT EXHIBITED NO AGGRESSIVE BEHAVIORS OR YELLING OUT DURING GROUP.
--- NOTE | 2018-03-18 15:34 | NUR ---
PM GROUP/LEISURE INTEREST PT WAS PRESENT FOR AFTERNOON GROUP THERAPY BUT WAS SLEEPING RECLINED IN A AGUSTIN CHAIR. PT WILL BE ENCOURAGED TO PARTICIPATE IN GROUP TOMORROW.
[2018-03-18 20:46] VITALS: BP 148/80
--- NOTE | 2018-03-19 02:58 | NUR ---
P-MEDICATION COMPLIANCE, CONFUSION I- ASSESS ORIENTATION, REORIENT AND REDIRECT NEEDED. ENCOURAGE MEDICATION COMPLIANCE AND EDUCATE. MONITOR SLEEP. R- PATIENT ALERT AND ORIENTED X4, PARTICIPATED IN MEDICATION EDUCATION WITH POSITIVE FEEDBACK. MEDICATION COMPLIANT WITHOUT DIFFICULTY. COOPERATIVE WITH HANDS ON CARE. NO AGITATION NOTED. P- CONTINUE TO ENCOURAGE MEDICATION COMPLIANCE. MONITOR FOR CHANGES IN MOOD AND BEHAVIOR, REORIENT AND REDIRECT NEEDED. MAINTAIN Q 15 MIN SAFETY CHECKS.
--- NOTE | 2018-03-19 04:40 | NUR ---
24 HOUR CHART CHECK COMPLETED.
--- NOTE | 2018-03-19 06:17 | NUR ---
PATIENT OBSERVED ON Q 15 MIN CHECKS TO HAVE SLEPT APPROX 6 HOURS WITH NO AWAKENINGS OR SIGNS AND SYMPTOMS OF DISTRESS NOTED.
--- NOTE | 2018-03-19 07:45 | NUR ---
PHYSICAL THERAPY Patient seen this am for therapy visit and was resting semi reclined in activity room Zulma chair upon therapist arrival. OT child center assistant was present for observation only and patient reported no new c/o's at this time. Patient states she has not done much standing at her current facility and presents with increased B hamstring / Gastroc tightness. Patient tolerated seated, prolonged strecth to improve ROM followed by several sit to stand transfers @ rail, Max A with use of B UE support. Patient tolerates approx 30 seconds static stand prior to quick onset of fatigue. Patient returned to and remained in Zulma chair under [facility] staff Supervision in activity room awaiting breakfast. Will continue per POC as tolerated, total treatment time 14 minutes. Taiwo Burgess, AVIONICS SYSTEMS ENGINEER
[2018-03-19 07:49] VITALS: BP 140/69
--- NOTE | 2018-03-19 08:00 | NUR ---
OT NOTE Pt was seen this A..M. 1:1 for 15 minute OT session. Upon arrival pt was sitting upright in julio chair, pt identified by name and . Pt's breakfast tray arrived and pt required modA for set up of tray. 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 Pt was left sitting upright in julio chair with lap tray in place, body alarm on for safety, and under [facility] staff supervision. Continue with rec D/C plan to return to [place]. CECY Ashley/Nevin
--- NOTE | 2018-03-19 08:15 | NUR ---
Treatment Plan meeting with Dr. Hung, RN, SW and Motorcycle Police Officer. Plan for discharge Saturday with Possibility of Saturday. Medications are being adjusted.
--- NOTE | 2018-03-19 09:31 | NUR ---
PERSONAL DAILY GOAL GOAL SETTING PT STATES, "I AM FEELING SO MUCH BETTER TODAY, NOW WHAT?" PT IS AT A LOSS FOR DAILY PURPOSE AND WOULD BENEFIT FROM SIMPLE GOAL SETTING OR A "TO DO" LIST
--- NOTE | 2018-03-19 11:46 | NUR ---
AM GROUP/EXERCISE/BRAIN GAMES PT ATTENDED AND PARTICIPATED IN ALL GROUP ACTIVITIES. PT EXHIBITED NO AGITATED OR AGGRESSIVE BEHAVIORS DURING GROUP. PT WAS VERY ARTICULATE AND WON BOTH BRAIN GAMES.
--- NOTE | 2018-03-19 13:39 | NUR ---
FULL UPDATE GIVEN TO DAUGHTER AT THIS TIME DURING PLEASANT VISITING HOURS.
--- NOTE | 2018-03-19 15:40 | NUR ---
PM GROUP/AROMATHERAPY/GUIDED MEDITATION PT ATTENDED GROUP LATE, PT WAS GETTING A SHOWER.
--- NOTE | 2018-03-19 15:42 | NUR ---
OCCUPATIONAL THERAPY CO-SIGN I approve of the Occupational Therapy notes written above. DEMARCUS BARAKAT OTR/Nevin
--- NOTE | 2018-03-19 17:51 | NUR ---
P-PT ALERT AND ORIENTED TO PERSON, PLACE, AND APPROXIMATE TIME. C/O BEING TIRED WITH FEELINGS OF ADHEDONIA. I-EMOTIONAL SUPPORT PROVIDED. R-PT REFUSED TO GO INTO FURTHER DETAILS REGARDING LACK OF INTEREST OR ENERGY. BECAME TEARFUL WHEN ENCOURAGING PT TO VENT FEELINGS. P-ENCOURAGE GROUPS.
[2018-03-19 20:01] VITALS: BP 146/53
--- NOTE | 2018-03-19 22:48 | NUR ---
24 HR chart check completed.
--- NOTE | 2018-03-19 23:15 | NUR ---
P-C/O FEELING TIRED I-PROVIDE 1:1 VERBAL INTERVENTION FOR EMOTIONAL SUPPORT, ADMININISTER MEDS, MONITOR SLEEP R-PT COMPLIANT. ALERT & ORIENTED TO PERSON & TIME. PLEASANTLY CONFUSED. VERBALLY INTERACTIVE WITH STAFF & CO-OPERATIVE. P-CONTINUE TO MONITOR & PROVIDE WITH PHYSICAL ASSISTANCE & EMOTIONAL SUPPORT NEEDED
--- NOTE | 2018-03-20 05:44 | NUR ---
PT HAS SLEPT QUIETLY PAST 2200
--- NOTE | 2018-03-20 07:35 | NUR ---
PHYSICAL THERAPY Patient seen this am for therapy visit and was relaxing in activity room Zulma chair upon therapist arrival. Patient voices no new c/o's, however presents with increased B LE hamstring tightness. OT senior care assistant was present as well for observation of treatment only as patient tolerated seated B hamstring prolonged stretch to increase LE ROM with L side more contracted than R side. Patient also performed seated AAROM, B LE therex, all planes x 10 reps each to improve LE strength in completing safe transfers and potential gait. Patient remained in activity room Zulma chair with lap tray, body alarm and under [facility] staff Supervision. Will continue per POC as tolerated, total treatment time 14 minutes. Taiwo Burgess, BEFORE AND AFTER SCHOOL DAYCARE WORKER
--- NOTE | 2018-03-20 08:00 | NUR ---
OT NOTE Pt was seen this A.M. 1:1 for 15 minute OT session. Upon arrival pt was sitting upright in julio chair, pt identified by name and and had no complaints at this time. Pt's breakfast tray arrived and pt required modA for set up of tray due to being unable to open milk container and cut her food. Therapist then trialed built up on her fork due to previous session where pt was dropping her utensils due to poor grasp. Placed built up on her fork and left the spoon without to compare. Pt was able to complete self feeding with supervision, therapist noted that with the fork (had built up) pt was able to complete self feeding and had no episodes of dropping. With the spoon pt had dropped three times while eating her oatmeal. Educated staff on use of built up and staff was understanding and stated that they will carry over with built up throughout meal times. Pt issued two pieces of built up at this time. Pt was left sitting upright in julio chair with lap tray in place, body alarm on for safety, and under [facility] staff supervision. Continue with rec D/C plan to return to [place]. CECY Ashley/Nevin
[2018-03-20 08:08] VITALS: BP 132/62
--- NOTE | 2018-03-20 08:30 | NUR ---
Treatment Plan meeting with Dr. Hung, RN, AT, SW and Waste Water Operator. Plan for discharge Saturday. Pt. to Return to [facility].
--- NOTE | 2018-03-20 10:24 | NUR ---
PT IS PLEASANT, COOPERATIVE WITH ASSESSMENT. PT IS QUIET, WITHDRAWN TO SELF, TEARFUL AT TIMES DURING VERBAL INTERACTION. STATES "I CAN'T BELIEVE I AM 89 YEARS OLD, I BELIEVE I WILL BE WITH GOD SOON" PT IS SLIGHTLY DISORIENTED TO TIME, STATING SHE OVERHEARD SOMEONE SAY IT WAS "MARCH 21, 2017". PT REORIENTED TO AGE AND TIME. PT PROVIDED WITH MUCH 1:1 FOR EMOTIONAL SUPPORT. PT ENCOURAGED TO INTERACT WITH PEERS AND PARTICIPATE IN GROUP FOR SOCIALIZATION AND SUPPORT. PT REMAINS PLEASANT WITH STAFF, STATES "I'M OKAY, HONEY". PT STATED SHE WOULD LIKE TO RECLINE AND REST FOR AWHILE. PT IS CURRENTLY ACTIVELY PARTICIPATING IN GROUP THERAPY/ACTIVITY. MEDICATION COMPLIANT WITHOUT DIFFICULTY. CONTINUE TO PROVIDE EMOTIONAL SUPPORT NEEDED. CONTINUE TO ENCOURAGE PARTICIPATION IN GROUP THERAPY/ACTIVITY FOR SOCIALIZATION AND SUPPORT. ENCOURAGE CONTINUED MEDICATION COMPLIANCE. REORIENT PT NEEDED.
--- NOTE | 2018-03-20 11:48 | NUR ---
AM GROUP/EXERCISE/CURRENT EVENTS PT WAS PRESENT FOR MORNING GROUP THERAPY AND ATTEMPTED TO PARTICIPATE TO THE BEST OF HER ABILITY. PT WAS VERY SLEEPY AND STATED TO THIS GERIATRICIAN THIS MORNING, "CAN YOU BRING THAT MEDITATION IN AGAIN TODAY, I WAS LATE TO GROUP YESTERDAY AND I WOULD REALLY LIKE TO LISTEN TO IT SINCE I'M DOWN TO MY LAST FEW DAYS" PT SEEMS "FLAT" TODAY COMPARED TO PREVIOUSLY.
--- NOTE | 2018-03-20 15:46 | NUR ---
1:1 PT HAD REQUESTED A MEDITATION VIDEO TO HELP HER IN LETTING GO. PT BELIEVES THAT SHE IS AT THE END OF HER LIFE AND WANTED TO FIND ACCEPTANCE. PT VIEWED THE MEDITATION AND LISTENED TO 1:1 CONVERSATION WITH MYSELF AND A PEER. PT STATED, "THANK YOU FOR THAT. IT REALLY HELPED AND WAS WHAT I NEEDED TODAY." PT EXPRESSED WORRIES OVER FAMILY MEMBERS/DRUG USE. PT STATED, " I NOW ACCEPT THAT THERE IS NOTHING THAT I CAN DO ABOUT IT. THEY WILL BE FINE. I'M READY TO GO NOW."
--- NOTE | 2018-03-20 18:26 | NUR ---
Shift chart check completed.
[2018-03-20 20:00] VITALS: BP 121/62
--- NOTE | 2018-03-20 21:24 | NUR ---
24 HR chart check completed.
--- NOTE | 2018-03-20 22:00 | NUR ---
P: MEDICATION COMPLIANCE. MOOD, CONFUSION I: ASSESS ORIENTATION AND MOOD. ENCOURAGE MED COMPLIANCE. R: ALERT AND ORIENTED X4. INTERACTION WITH STAFF ENCOURAGED, MED COMPLIANT AND COOPERATIVE WITH CARE. P: CONTINUE TO ENCOURAGE MEDICATION COMPLIANCE. 15 MIN SAFETY CHECKS, MONITOR MOOD AND BEHAVIOR.
--- NOTE | 2018-03-21 05:58 | NUR ---
OBSERVED TO HAVE SLEPT 8 HOURS LAST NIGHT
[2018-03-21 07:35] VITALS: BP 113/65
[2018-03-21] MEDS ORDERED: ULTRAM50 MG PO (08:02)
[2018-03-21] MEDS ORDERED: MEMANTINE HCL10 MG PO (09:14)
[2018-03-21] MEDS ORDERED: RIVASTIGMINE TAR3 M1 PO (09:14)
[2018-03-21] MEDS ORDERED: MIRTAZAPINE15 M2 PO (09:14)
--- NOTE | 2018-03-21 11:50 | NUR ---
AM THERAPY/CREATIVE OUTLETS PT WAS PLACED IN A QUIET ROOM WITH GUIDED MEDITATION PER PT REQUEST. PT WAS ABLE TO RELAX AND BE SOOTHED. PT WILL BE DISCHARGED FROM THE UNIT TODAY
--- NOTE | 2018-03-21 14:45 | NUR ---
PT DISCHARGED TO [facility] AT THIS TIME VIA [facility] AND TWO ATTENDANTS. PT SMILING, PLEASANT, THANKING STAFF FOR ALL OF THEIR HELP. ALL BELONGINGS AND PAPERWORK SENT WITH AMBULANCE ATTENDANTS AND PT.
--- NOTE | 2018-03-24 07:24 | NUR ---
OCCUPATIONAL THERAPY CO-SIGN I approve of the Occupational Therapy notes written above. DENG BRAY
--- NOTE | 2018-03-31 08:26 | NUR ---
PHYSICAL THERAPY CO-SIGN I approve of the Phyical Therapy notes written above. ARNULFO HOPKINS PT
== END 2018-03-21 14:42 | disposition other institution (70) | DRG 883 ==
LOC: 3N 15:18
PROVIDERS: ADMIT Psychiatry & Neurology Psychiatry
DX: F63.81 Intermittent explosive disorder (principal); F33.9 Major depressive disorder, recurrent, unspecified; G30.9 Alzheimer's disease, unspecified; I82.412 Acute embolism and thrombosis of left femoral vein; R45.1 Restlessness and agitation; G20 Parkinson's disease; I10 Essential (primary) hypertension; F41.1 Generalized anxiety disorder; K21.9 Gastro-esophageal reflux disease without esophagitis; M19.90 Unspecified osteoarthritis, unspecified site; M54.16 Radiculopathy, lumbar region; E03.9 Hypothyroidism, unspecified; M81.0 Age-related osteoporosis without current pathological fracture; F02.80 Dementia in other diseases classified elsewhere, unspecified severity, without behavioral disturbance, psychotic disturbance, mood disturbance, and anxiety